=== PATIENT | female | born 1970 | race Two or more races ===

== ENCOUNTER 2022-07-13 18:46 | Emergency (ER) | payer SELFPAY ==
[~2022-07-13] VITALS: Ht 162.6 cm; Wt 78.9 kg
--- NOTE | 2022-07-13 19:55 | NUR ---
BIBRA 838 FROM HOME FOR C/O H/A AND FACIAL ABRASION S/P SLIP AND FALL. PATIENT IS [id number]. ABLE TO MAKE NEEDS KNOWN. -NAUSEA AND VOMITING. VITALS CHECKED.
[2022-07-13] MEDS ORDERED: BACITRACIN ZINC OINT PACKET 1 EA PACKET TP ONE ×3 (20:30→20:46)
[2022-07-13] MEDS ORDERED: ACETAMINOPHEN 325 MG TABLET PO ONE (20:30)
[2022-07-13] MEDS ORDERED: ACETAMINOPHEN 325 MG TABLET ONE ×2 (20:40→20:46)
--- NOTE | 2022-07-13 20:42 | NUR ---
PT TAKEN TO RADIOLOGY VIA W/C
--- NOTE | 2022-07-13 21:04 | NUR ---
MEDS GIVEN. OINTMENT APPLIED TO AFFECTED AREA
--- NOTE | 2022-07-13 22:58 | NUR ---
Patient discharged to home in stable condition. Written and verbal after care instructions given. Patient verbalizes understanding of instruction.
[2022-07-14 00:24] VITALS: BP 138/80
== END 2022-07-14 00:25 | disposition home or self-care (01) ==
LOC: ER 18:52
DX: S01.81XA Laceration without foreign body of other part of head, initial encounter (principal); R51.9 Headache, unspecified; H57.02 Anisocoria; I10 Essential (primary) hypertension; K21.9 Gastro-esophageal reflux disease without esophagitis; Z88.2 Allergy status to sulfonamides; Z88.8 Allergy status to other drugs, medicaments and biological substances; Z60.2 Problems related to living alone; W18.30XA Fall on same level, unspecified, initial encounter; Y93.89 Activity, other specified; Y92.89 Other specified places as the place of occurrence of the external cause; Y99.8 Other external cause status
CPT/HCPCS: 70450-TC; 70486-TC